=== PATIENT | female | born 2000 | race Caucasian/White ===

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

== ENCOUNTER 2023-04-19 00:18 | Outpatient (CLI) | payer OTHER ==
[2023-04-19 01:08] VITALS: BP 136/72; PULSE 94; RESP 16; TEMP 96.8
--- NOTE | 2023-04-19 13:27 | P.MSEPDOC ---
Presenting Problems - Arrival Data Date of Arrival on Unit: 04/19/23 Time of Arrival on Unit: 00:18 Mode of Transport: Ambulatory - Complaint OB-Reason for Admission/Chief Complaint: Rule Out SROM Comment: pt. states possble SROM since yesturday at [id number] Medical History - Information : 2 Para: 1 Term: 1 : 0 Abortions: Spontaneous or Elective: 0 Number of Living Children: 1 - Gestational Age Gestational Age by HECTOR (wks/days): 36 Weeks and 3 Days Review of Systems - Review of Systems Constitutional: No problems Breast: No problems ENT: No problems Cardiovascular: No problems Respiratory: No problems Gastrointestinal: No problems Genitourinary: No problems Musculoskeletal: No problems Neurological: No problems Skin: No problems Vital Signs - Temperature Temperature: 96.8 F Temperature Source: Oral - Pulse Pulse Oximetery Pulse Rate: 94 Pulse Assessment Method: Automatic Cuff - Respirations Respiratory Rate: 16 Oxygen Delivery Method: Room Air O2 Sat by Pulse Oximetry: 96 - Blood Pressure Right Arm Blood Pressure: 136/72 Blood Pressure Mean: 93 Blood Pressure Source: Automatic Cuff Medical Screen Scoring - Assessment - Baby A Baseline FHR: 120 Heart Rate - NICHD Category: Category I (Normal) NST: Reactive Physician Notification - Physician Notified Physician Notified Date: 04/19/23 Physician Notified Time: 00:53 Physician: Syeda Stauffer Order Received: Yes - Notification Comment Comment: discharge home Maternal Triage Index - Maternal Triage Index Presenting for scheduled procedure w/no complaint: No - Stat/Priority 1 Stat Priority 1: No - Urgent/Priority 2 Urgent Priority 2: No - Prompt/Priority 3 Prompt Priority 3: Yes Criteria Met for Priority 3: amnisure negative Disposition - Disposition OB Disposition: Discharge to home Discharge Date: 04/19/23 Discharge Time: 01:00 I agree with the RN Medical Screening Exam: Yes Case reviewed; plan agreed upon as documented in EMR&OBIX.: Yes Diagnosis: FALSE LABOR BEFORE 37 COMPLETED WEEKS OF GEST, THIRD TRI
== END 2023-04-19 01:00 | disposition home or self-care (01) ==
LOC: FBPOP 00:18
PROVIDERS: ATTEND Obstetrics & Gynecology
DX: O47.03 False labor before 37 completed weeks of gestation, third trimester (principal); Z3A.36 36 weeks gestation of pregnancy
CPT/HCPCS: 59025; 84112; G0463; 99213

== ENCOUNTER 2023-05-07 05:55 | Inpatient (IN) | payer OTHER ==
[2023-05-02 13:37] VITALS: BMI 43.4
--- NOTE | 2023-05-06 19:53 | P.HPOB ---
History of Present Illness H&P Date: 05/06/23 Chief Complaint: Scheduled repeat section with tubal ligation This is a 22 y.o. female, 2, para 1, with an estimated date of confinement of 05/14/2023, estimated gestational age of 39-0/7 weeks, who presents for repeat section with bilateral tubal ligation via fulgaration. She complains of occasional contractions and pressure. labs: GC/Chlamydia/Trich-neg Hemoglobin-11.6 Blood type-B+ Antibody screen-neg Rubella-immune RPR-NR HIV-NR Hepatitis C-neg 1 hr. GTT-127 GBS-neg OB Hx: . History of 1 previous due to failure to descend [employer] Professional Hx: No history of STDs Social Hx: Single, unemployed. Review of Systems Constitutional: Denies chills, Denies fever Eyes: denies blurred vision, denies pain Ears, nose, mouth and throat: Denies headache, Denies sore throat Cardiovascular: Denies chest pain, Denies shortness of breath Respiratory: Denies cough Gastrointestinal: Reports abdominal pain (irregular contractions) Genitourinary: Reports pelvic pain, Reports Musculoskeletal: Reports low back pain Integumentary: Denies pruritus, Denies rash Neurological: Denies numbness, Denies weakness Psychiatric: Reports anxiety, Reports depression Past Medical History Additional Past Medical History / Comment(s): crohn's,covid infection Oct 2021 History of Any Multi-Drug Resistant Organisms: None Reported Past Surgical History: Section Past Anesthesia/Blood Transfusion Reactions: No Reported Reaction Additional Past Anesthesia/Blood Transfusion Reaction / Comment(s): no hx blood transfusion Past Psychological History: Anxiety, Depression Smoking Status: Never smoker Past Alcohol Use History: None Reported Past Drug Use History: None Reported - Past Family History Mother Family Medical History: Hypertension Father Family Medical History: Cancer (Lung), Deep Vein Thrombosis (DVT), Liver Disease Additional Family Medical History / Comment(s): liver transplants Medications and Allergies Home Medications Medication Instructions Recorded Confirmed Type Ferrous Sulfate [Iron] 1 tab PO DAILY 04/19/23 05/07/23 History Vit No.179/Iron/Folic 1 tab PO DAILY 04/19/23 05/07/23 History [ Tablet] Acetaminophen [Tylenol Extra 500 mg PO Q6H PRN 05/02/23 05/02/23 History Strength] Allergies Allergy/AdvReac Type Severity Reaction Status Date / Time No Known Allergies Allergy Verified 05/02/23 13:28 Exam Osteopathic Statement: *. No significant issues noted on an osteopathic structural exam other than those noted in the History and Physical/Consult. HEENT: within normal limits Heart: regular rate and rhythm Lungs: clear to auscultation bilaterally Abdomen: , non-tender Cervix: 3.5 cm/70%/-3 heart tones: 140's by doppler Extremities: negative Angeline's Results Result Diagrams: 05/07/23 06:30 Assessment and Plan (1) 39 weeks gestation of Current Visit: No Status: Acute Code(s): Z3A.39 - 39 WEEKS GESTATION OF SNOMED Code(s): 60913821 (2) Previous section Current Visit: No Status: Acute Code(s): Z98.891 - HISTORY OF UTERINE SCAR FROM PREVIOUS SURGERY SNOMED Code(s): 857049204 (3) Family planning Current Visit: No Status: Acute Code(s): Z30.09 - ENCOUNTER FOR OT GENERAL CNSL AND ADVICE ON CONTRACEPTION SNOMED Code(s): 264238004 Plan: Proceed with repeat section with bilateral partial salpingectomy. I have discussed the risks, benefits, and alternative therapies for the above-mentioned procedure and for both sedation/anesthesia as well as necessary blood products administration, if indicated, as they pertain to this patient. The patient has indicated her understanding and acceptance of the risks and procedures discussed.
[2023-05-07] MEDS ORDERED: LACTATED RINGERS 1,000 ML IV ONE (06:16)
[2023-05-07] MEDS ORDERED: TRANEXAMIC 1,000 MG/100ML-NACL 1,000 MG in EMPTY BAG 1 BAG IV PRN (06:16)
[2023-05-07] MEDS ORDERED: LIDOCAINE 1% (10MG/ML) FOR IV START INTRADERMA PRN (06:16)
[2023-05-07] MEDS ORDERED: METHYLERGONOVINE 0.2 MG/ML 1 ML AMP IM PRN (06:16)
[2023-05-07] MEDS ORDERED: OXYTOCIN 10 UNIT/ML 1 ML VIAL IM PRN (06:16)
[2023-05-07] MEDS ORDERED: CITRIC ACID-SODIUM CITRATE 15 ML CUP PO ONE (06:16)
[2023-05-07] MEDS ORDERED: OXYTOCIN 30 UNITS/500 ML NS 30 UNIT in SALINE 1 500ML.BAG IV SCH (06:16)
[2023-05-07] MEDS ORDERED: CARBOPROST TROMETHAMINE 250 MCG/ML 1 ML AMP IM PRN (06:16)
[2023-05-07] MEDS ORDERED: miSOPROStoL 200 MCG TAB PO PRN (06:16)
[2023-05-07 06:51] LABS: Basophils % (A) 0 %; Eosinophils # (A) 0.1 k/uL (0-0.7); Eosinophils % (A) 1 %; HCT 33.6 % (34.0-46.0); HGB 11.3 gm/dL (11.4-16.0); Lymphocytes # (A) 1.5 k/uL (1.0-4.8); Lymphocytes % (A) 13 %; MCH 27.2 pg (25.0-35.0); MCHC 33.7 g/dL (31.0-37.0); MCV 80.9 fL (80.0-100.0); Mean Platelet Volume 9.9; Monocytes # (A) 0.3 k/uL (0-1.0); Monocytes % (A) 3 %; Neutrophils # (A) 9.9 k/uL (1.3-7.7); Neutrophils % (A) 83 %; Platelet Count 197 k/uL (150-450); RBC 4.16 m/uL (3.80-5.40); RDW 14.9 % (11.5-15.5); WBC 11.9 k/uL (3.8-10.6)
[2023-05-07] MEDS: LACTATED RINGERS 1,000 ML IV SCH ×4 (07:11→16:28)
[2023-05-07] MEDS ORDERED: PHENYLEPHRINE-0.9% NACL SYG 1,000 MCG/10 ML SYRINGE ONE (07:26)
[2023-05-07] MEDS ORDERED: OXYTOCIN 10 UNIT/ML 1 ML VIAL ONE (07:26)
[2023-05-07] MEDS ORDERED: KETOROLAC 30 MG/ML 1 ML VIAL ONE (07:26)
[2023-05-07] MEDS ORDERED: MORPHINE SULFATE (PF) 0.3 MG/0.3 ML SYR ONE (07:26)
[2023-05-07] MEDS ORDERED: ONDANSETRON 4 MG/2 ML VIAL ONE (07:26)
--- NOTE | 2023-05-07 08:29 | P.OP ---
Date of Procedure: 05/07/23 Preoperative Diagnosis: 1. Intrauterine at 39-0/7 weeks. 2. History of previous section. 3. Family-planning. 4. Active labor. Postoperative Diagnosis: Same Procedure(s) Performed: Repeat low transverse section with bilateral partial salpingectomy Anesthesia: spinal (Duramorph) Surgeon: Syeda Stauffer [employer] Consultant #1: Corona Bain Estimated Blood Loss (ml): 800 Pathology: other (Portions of right and left fallopian tubes) Condition: stable Disposition: floor Indications for Procedure: This is a 22-year-old female 2 para 1 at 39-0/7 weeks who presented for scheduled repeat low transverse section with bilateral partial salpingectomy. This morning however she began feeling contractions at about 1 AM and on arrival was noted to be 9 cm. She was given the option to try a vaginal after but refused and wishes to proceed with repeat low transverse section with bilateral partial esophagectomy. I have discussed the risks, benefits, and alternative therapies for the above-mentioned procedure and for both sedation/anesthesia as well as necessary blood products administration, if indicated, as they pertain to this patient. The patient has indicated her understanding and acceptance of the risks and procedures discussed. Operative Findings: A viable female is noted in the vertex presentation and occiput posterior lie with nuchal cord 1 and body cord 2-3. scores are 8 at 1 minute and 9 at 5 minutes and infant weight is 6 lbs. 9 oz. Normal uterus tubes and ovaries are noted. There are noted to be some omental adhesions to the anterior abdominal wall. Description of Procedure: The patient is taken to the operating room where she is placed in the dorsal supine position with leftward tilt after spinal Duramorph anesthesia is given. She is prepped and draped in the normal sterile fashion. Skin was tested and found to be adequately anesthetized. A Pfannenstiel skin incision was made with a scalpel through the previous laparotomy scar. A second knife was used to carry the incision down to the underlying layer of fascia. The fascia was nicked in the midline with a scalpel and then extended laterally bilaterally with Lui scissors. The anterior lip of the fascia was grasped with 2 Saleem clamps and then dissected off the underlying rectus muscle in the midline with Lui scissors. The inferior aspect of the fascial incision was grasped with 2 Saleem clamps and dissected off the underlying rectus muscle and the midline with Lui scissors. Omentum is noted to be up against the muscle layer. There is a small defect within the omentum that I'm able to put my fingers through and extend the peritoneal incision superiorly and inferiorly bluntly. Next a DeLee retractor is placed. The vesicouterine peritoneum is entered sharply with Metzenbaum scissors and extended laterally bilaterally with Metzenbaum scissors and then the bladder flap is pushed inferiorly. The lower uterine segment is incised in transverse fashion with the scalpel and then bluntly entered with a hemostat. Clear fluid is noted. The incision was then extended laterally bilaterally with 2 fingers. Next the infant's head is delivered through the incision and noted to be in occiput posterior lie. Nose and mouth are bulb suctioned. Nuchal cord 1 is reduced around the 's head. The remainder of the infant is easily delivered and placed on mother's abdomen. There was noted to be a body cord 2. Cord is clamped and cut. Infant is taken to warmer by nursing staff. Uterine fundus is gently massaged and placenta is delivered manually. Uterus is exteriorized and cleared of all clots and debris. Uterine incision is closed with 0 Vicryl suture in a running locked fashion. A second layer of 0 Vicryl suture is used in a running fashion for hemostasis. Once adequate hemostasis as assured, the vesicouterine peritoneum is reapproximated with 2-0 Vicryl suture in a running fashion. Next attention is turned to the tubes. The right fallopian tube is grasped in the midportion with a hemostat and then the mesosalpinx is entered with Bovie cautery. 0 Vicryl suture is tied 2 times around both the proximal and distal portion of the tube and then the knuckle of tube is removed with Metzenbaum scissors. The ends of the tubes are then cauterized with Bovie cautery. Excellent hemostasis was noted. The same procedure is carried out on the left fallopian tube. Overall good hemostasis is noted. Posterior cul-de-sac is suctioned of all clots and debris. Uterus is returned to the abdomen. Incision is noted to be hemostatic. Both tubal sites are visualized and noted to be hemostatic. There is noted to be a bleeder at the superior edge of the omentum near the fascia and this is cauterized with Bovie cautery. Good hemostasis is now noted. Muscle layer is reapproximated with 0 Vicryl suture in interrupted fashion. Fascia layer is then closed with 0 PDS suture with 2 sutures meeting in the midline and the knots buried in either side and in the midline. The subcutaneous tissue was then closed with 2-0 Vicryl suture. Skin layer was then closed with kelly. All sponge and needle counts are correct. The patient is taken to recovery room in stable condition.
[2023-05-07] MEDS ORDERED: MORPHINE SULFATE 2 MG/ML SYRINGE IVP PRN (10:00)
[2023-05-07] MEDS ORDERED: diphenhydrAMINE 50 MG/ML 1 ML VIAL IVP PRN (10:00)
[2023-05-07] MEDS ORDERED: NALBUPHINE 10 MG/ML (10 ML MDV) IV PRN (10:00)
[2023-05-07] MEDS ORDERED: ONDANSETRON 4 MG/2 ML VIAL IVP PRN (10:00)
[2023-05-07] MEDS ORDERED: METOCLOPRAMIDE 5 MG/ML 2 ML VIAL IVP PRN (10:00)
[2023-05-07] MEDS ORDERED: NALOXONE 0.4 MG/ML 1 ML VIAL IV PRN (10:00)
[2023-05-07] MEDS: KETOROLAC 15 MG/ML 1 ML VIAL IVP PRN ×2 (13:23→20:34)
[2023-05-07] MEDS: ACETAMINOPHEN TAB 500 MG TAB PO SCH ×2 (17:14→23:20)
[2023-05-07] MEDS ORDERED: LACTATED RINGERS 1,000 ML IV SCH (17:15)
[2023-05-07] MEDS: SENNOSIDES-DOCUSATE SODIUM 1 EACH TAB PO SCH (20:33)
[2023-05-07] MEDS: IBUPROFEN 600 MG TAB PO SCH (20:38)
[2023-05-08] MEDS: IBUPROFEN 600 MG TAB PO SCH ×5 (02:07→23:45)
[2023-05-08] MEDS: ACETAMINOPHEN TAB 500 MG TAB PO SCH ×4 (04:30→22:29)
[2023-05-08 07:19] LABS: Basophils % (A) 0 %; Eosinophils # (A) 0.1 k/uL (0-0.7); Eosinophils % (A) 1 %; HCT 23.8 % (34.0-46.0); HGB 7.8 gm/dL (11.4-16.0); Hypochromasia Slight; Lymphocytes # (A) 1.7 k/uL (1.0-4.8); Lymphocytes % (A) 17 %; MCH 27.2 pg (25.0-35.0); MCV 82.5 fL (80.0-100.0); Mean Platelet Volume 10.1; Monocytes # (A) 0.3 k/uL (0-1.0); Monocytes % (A) 3 %; Neutrophils # (A) 7.6 k/uL (1.3-7.7); Neutrophils % (A) 78 %; Platelet Count 144 k/uL (150-450); RBC 2.88 m/uL (3.80-5.40); RDW 15.2 % (11.5-15.5); WBC 9.7 k/uL (3.8-10.6)
--- NOTE | 2023-05-08 09:41 | P.PNOBGPC ---
Subjective - Subjective Principal diagnosis: Status post repeat with tubal postoperative day #1 Interval history: Patient is doing well. She is breast-feeding. Lochia is decreasing. Her pain is fairly well controlled with ibuprofen and Tylenol. She has been passing some flatus and is tolerating a regular diet. She has been urinating without difficulty. Patient reports: Reports appetite normal, Reports voiding normally, Reports pain well controlled, Reports ambulating normally : doing well, nursing well Objective - Vital Signs Latest vital signs: Vital Signs Temp Pulse Resp BP Pulse Ox 05/08/23 09:13 98.7 F 84 16 136/82 05/08/23 04:30 98.3 F 83 14 121/74 97 05/07/23 23:45 98.4 F 87 16 114/70 97 05/07/23 19:50 99.6 F 89 18 122/71 98 05/07/23 16:00 99.5 F 82 16 116/71 96 05/07/23 12:00 98.8 F 70 16 121/77 95 05/07/23 10:53 16 99 05/07/23 10:26 97.2 F L 60 16 130/65 99 05/07/23 10:00 16 99 05/07/23 09:56 97.5 F L 56 L 16 123/63 99 Intake and Output 05/07/23 05/08/23 05/08/23 22:59 06:59 14:59 Intake Total 1000 Output Total 500 1100 Balance -500 -100 Intake: IV 1000 Invasive Line 1 1000 Output: Urine 500 1100 Uretheral (Roldan) 100 450 Other: # Voids 1 - Exam Extremities: Present: normal. Absent: tenderness Abdomen: Present: normal appearance, soft (Positive bowel sounds 4). Absent: distention, tenderness Incision: Present: normal, dry, intact. Absent: erythematous Uterus: Present: normal, firm. Absent: tenderness - Labs Labs: Abnormal Lab Results - Last 24 Hours (Table) 05/08/23 Range/Units 06:18 RBC 2.88 L (3.80-5.40) m/uL Hgb 7.8 L D (11.4-16.0) gm/dL Hct 23.8 L (34.0-46.0) % Plt Count 144 L (150-450) k/uL Assessment and Plan Assessment: Status post repeat low transverse section with bilateral partial salpi ngectomy postoperative day #1 (1) 39 weeks gestation of Current Visit: No Status: Acute Code(s): Z3A.39 - 39 WEEKS GESTATION OF SNOMED Code(s): 28845804 (2) Previous section Current Visit: No Status: Acute Code(s): Z98.891 - HISTORY OF UTERINE SCAR FROM PREVIOUS SURGERY SNOMED Code(s): 030721578 (3) Family planning Current Visit: No Status: Acute Code(s): Z30.09 - ENCOUNTER FOR OT GENERAL CNSL AND ADVICE ON CONTRACEPTION SNOMED Code(s): 988902050 Plan: Continue with postoperative and care. Anticipate possible discharge home tomorrow.
--- NOTE | 2023-05-08 18:03 | P.PN ---
Progress Note - Text Progress Note Date: 05/08/23 Postop day 1 from under spinal anesthesia with intrathecal morphine given for postop pain management. Patient is doing well. Pain is well controlled. On visual analog scale 4/10 Mild itching present No nausea or vomiting reported. No Headache or weakness and numbness in the legs. No complications from spinal anesthesia.
[2023-05-08] MEDS: SENNOSIDES-DOCUSATE SODIUM 1 EACH TAB PO SCH ×2 (21:50)
[2023-05-08] MEDS: SIMETHICONE 80 MG CHEWABLE PO PRN (21:50)
[2023-05-08] MEDS: LACTATED RINGERS 1,000 ML IV SCH ×2 (22:27→22:28)
[2023-05-09 00:38] VITALS: RESP 14
[2023-05-09] MEDS: ACETAMINOPHEN TAB 500 MG TAB PO SCH ×2 (03:43→11:03)
[2023-05-09] MEDS: SENNOSIDES-DOCUSATE SODIUM 1 EACH TAB PO SCH (07:56)
[2023-05-09] MEDS: SIMETHICONE 80 MG CHEWABLE PO PRN (07:56)
[2023-05-09 08:38] VITALS: BP 132/87; PULSE 103; TEMP 98.3
--- NOTE | 2023-05-09 08:51 | P.DS ---
Providers Date of admission: 05/07/23 05:55 Expected date of discharge: 05/09/23 Attending physician: Syeda Stauffer Primary care physician: Stated None - Discharge Diagnosis(es) (1) 39 weeks gestation of Current Visit: No Status: Acute (2) Previous section Current Visit: No Status: Acute (3) Family planning Current Visit: No Status: Acute Hospital Course: This is a 22-year-old female 2 para 1 at 39-0/7 weeks who presented in active labor on the day she was scheduled for repeat section. She underwent a repeat low transverse section with bilateral partial salpingectomy on 05/07/2023 and delivered a viable female with scores of 8 at 1 minute and 9 at 5 minutes and weight of 6 lbs. 9 oz. Her postoperative and courses have been uncomplicated. She is passing flatus and bowel movement. She is tolerating regular diet. Lochia has been decreasing. Her pain is well-controlled. She is breast-feeding. Vital signs are stable. Abdomen is soft with positive bowel sounds 4 and incision clean dry and intact with kelly in place. Extremities show negative Homans. Impression is status post repeat low transverse section with bilateral partial salpingectomy postoperative day #2. Plan is to discharge home today. Routine postoperative and instructions are given. She is advised to follow up in the office in 1 week for a postoperative check and in 6 weeks for check. She will be given a prescription for ibuprofen. Procedures: Repeat low transverse section with bilateral partial salpingectomy on 05/07/2023 Patient Condition at Discharge: Stable Plan - Discharge Summary Discharge Rx Participant: No New Discharge Prescriptions: New Ibuprofen [Motrin] 600 mg PO Q6H #60 tab Continue Ferrous Sulfate [Iron] 1 tab PO DAILY Vit No.179/Iron/Folic [ Tablet] 1 tab PO DAILY Acetaminophen [Tylenol Extra Strength] 500 mg PO Q6H PRN PRN Reason: Pain Discharge Medication List Ferrous Sulfate [Iron] 1 tab PO DAILY 04/19/23 [History] Vit No.179/Iron/Folic [ Tablet] 1 tab PO DAILY 04/19/23 [History] Acetaminophen [Tylenol Extra Strength] 500 mg PO Q6H PRN 05/02/23 [History] Ibuprofen [Motrin] 600 mg PO Q6H #60 tab 05/09/23 [Rx] Follow up Appointment(s)/Referral(s): Syeda Stauffer DO [Doctor of Osteopathic Medicine] - 06/20/23 11:30 am (Post Op Appointment 05-19 at 1:30pm) Activity/Diet/Wound Care/Special Instructions: Instructions 1. Do not begin any exercise program for 3 weeks. 2. Do not resume sexual relations for 3 weeks or longer if uncomfortable. 3. You may take tub baths or showers at any time. 4. You may use tampons if desired after 3 weeks. 5. Keep the area of episiotomy (stitches) clean and dry. 6. If you are not nursing, wear a good fitting, supportive bra during the day and limit fluid intake for at least 1 week to prevent breast engorgement. 7. Call the office, [phone], within the next week to make appointment for your 6 week checkup if it has not already been made. 8. Report any of the following occurrences to the doctor promptly: a. Heavy, excessive bleeding b. Chills, fever c. Burning or frequency of urination d. Pain or redness and breasts if nursing e. Increasing pain or swelling in episiotomy (stitches). In addition to the above instructions, the following additional should be followed: 1. No heavy lifting or straining (exercising) until after 6 week checkup. 2. Keep abdominal incision clean and dry: You may wear a dressing if more comfortable. 3. Make office appointment for 10 days after going home or as instructed by her doctor. Discharge Disposition: HOME SELF-CARE
[2023-05-09] MEDS: IBUPROFEN 600 MG TAB PO SCH (11:03)
== END 2023-05-09 10:46 | disposition home or self-care (01) | DRG 539 ==
LOC: 4FBP 05:55
PROVIDERS: ADMIT Obstetrics & Gynecology; ATTEND Obstetrics & Gynecology
PROC: 0UB70ZZ Excision of Bilateral Fallopian Tubes, Open Approach (ICD-10-PCS; 2023-05-07)
PROC: 10D00Z1 Extraction of Products of Conception, Low, Open Approach (ICD-10-PCS; principal; 2023-05-07 08:00)
DX: O34.211 Maternal care for low transverse scar from previous cesarean delivery (principal); F32.A Depression, unspecified; O69.81X0 Labor and delivery complicated by cord around neck, without compression, not applicable or unspecified; O99.344 Other mental disorders complicating childbirth; O99.73 Diseases of the skin and subcutaneous tissue complicating the puerperium; O99.62 Diseases of the digestive system complicating childbirth; F41.9 Anxiety disorder, unspecified; K50.90 Crohn's disease, unspecified, without complications; Z86.16 Personal history of COVID-19; L29.9 Pruritus, unspecified; Z30.2 Encounter for sterilization; Z37.0 Single live birth; Z3A.39 39 weeks gestation of pregnancy; Z82.49 Family history of ischemic heart disease and other diseases of the circulatory system
CPT/HCPCS: 85025; 86850; 86900; 86901; 88302